=== PATIENT | female | born 1960 | race Caucasian/White ===

== ENCOUNTER 2025-04-21 12:58 | Outpatient (AMB) | payer MEDICARE, OTHER, SELFPAY ==
--- NOTE | 2025-04-21 13:29 | MHC.OFFVIS ---
Intake Visit Reasons: 3 Months Allergies doxycycline Allergy (Unknown, Verified 04/21/25 13:38) Unknown Medication List - Last Reconciled 04/21/25 by Baylee Escobar CNP alendronate 70 mg PO QWEEK atenolol 25 mg PO DAILY atorvastatin 80 mg PO DAILY brivaracetam (Briviact) 100 mg PO BID 90 days digoxin 125 mcg PO DAILY donepezil 5 mg PO DAILY furosemide 40 mg PO DAILY lamotrigine 150 mg PO BID levothyroxine 88 mcg PO DAILY sertraline 50 mg PO DAILY topiramate 200 mg PO BID ustekinumab (Stelara) mg subcut HPI Comments Details: She was doing okay. No seizures. She tried primidone, but had side effect of drowsiness with it and stopped medication. Tremors were mild and there was no functional impairment. She noticed tremor more when she was doing something like cutting food or brushing her teeth. No difficulty eating, drinking, or swallowing. Her medications were managed by her (Antonino). He had a pill splitter, but he was having a hard time splitting lamotrigine in half and she was wondering if this could be changed so medication did not need to be cut. Memory was about the same, forgetful at times. Mood was so-so. She said a doctor from [place] noted slight head tremor after stent placed a few years and told to tell her neurologist, but did not at the time as memory was getting worse which was focus of appointment. Tremor was intermittent and no functional impairment. Her (Antonino) noticed some tremor in hands. Thought she may have had seizure in mid-11/2024 as she thought?she could smell cigarette smoke and did not feel good after. The next day she could smell old lady perfume, was confused, head felt pricky, hands numb, and was tired after. Unsure how long either episode lasted. No missed medication doses.? has been managing her medications. Lamotrigine dose was increased. Had pneumonia earlier in 11/2024, treated with antibiotics. Appetite is not so good. Sometimes does not remember if she ate. Has a hard time making choices. Shopping is difficult because of all the choices. Long-term memory is starting to not be so good anymore. Mood is better with sertraline and not crying anymore.? She may have had a couple seizures at the end of 09/2024 as she ran out of [employer] and did not have medication for about 2.5 days. She was home alone, sitting with her dogs, when she had a feeling came over her like someone flipped a switch. This feeling happened a few times and then she had feeling like she had too much to drink. She did not pass out. No tongue bite or incontinence. Prior to this, she had not had recurrence of seizures in over 15 years. Memory was about the same. Short-term memory is not so good, forgetful and needs to write things down. She says she needs things to be simple and struggles if given multiple choices or options. Things take her longer to do now, like showering and getting ready. If she has somewhere to go, she lays her clothes out the night before. She still cooks and does some pattern duplicator, like laundry. Her recently started organizing her medications. She does not manage the finances and he is now on her checking account. She says he is in denial about her condition. She says he will not be able to care for her in the future and is planning to eventually go into nursing facility. Mood fluctuates, mad at times, but less so now, and finds herself crying at times and anxious. She has been noted to have some memory problems that started around 2018 with some forgetfulness and repeating herself. She got around 2018 or 2019 and doesn't remember her marriage or the day and date. She was seeing a neurologist in [place], [place] and had neuropsych testing on 12/23/22 which showed global cognitive impairment, particularly in executive function. She has not worked in about 24 years. Daughter is in [place] and sees her 2/ month and talks frequently. feels her memory is impaired. She has temporal lobe or partial complex seizures. In 2019 she had a mild heart attack and had a stent. She has a history of hypothyroidism. She tried and failed Depakote, Dilantin, Keppra, and others with side effects in [place]. FOR[facility]LY [facility], [facility] Medical History (Updated 04/21/25 @ 13:36 by Baylee Escobar CNP) Benign essential tremor Alzheimer dementia Epilepsy Review of Systems Const Denies chills, Denies daytime sleepiness, Reports difficulty sleeping, Denies fatigue, Denies fever(s), Denies frequent falls, Denies headache(s), Denies increased appetite, Denies poor appetite, Denies snoring, Denies weakness, Denies weight gain and Denies weight loss Eyes Denies loss of vision ENT Denies vertigo, Denies dizziness, Denies headache(s) and Denies neck pain Card Denies chest pain at rest, Denies chest pain with activity, Denies syncope, Denies leg edema, Denies palpitations, Denies dyspnea and Denies dyspnea on exertion Resp Denies cough, Denies dyspnea, Denies dyspnea on exertion and Denies snoring GI Denies abdominal pain, Denies constipation, Denies heartburn, Denies diarrhea and Denies nausea Denies urinary frequency, Denies urinary incontinence and Denies urinary urgency Musc Denies abnormal gait, Denies back pain, Reports myalgias, Reports arthralgias, Denies neck pain, Denies numbness and Denies tingling Neuro Denies abnormal gait, Denies vertigo, Denies dizziness, Denies syncope, Denies frequent falls, Denies headache(s), Denies lack of coordination, Denies loss of vision, Reports memory loss, Denies numbness, Denies Other visual disturbances, Denies restless legs, Reports seizure-like activity, Denies tingling, Denies paresthesias, Reports tremor(s) and Denies weakness Psych Reports anxiety, Reports depression, Denies auditory hallucinations, Reports memory loss and Denies visual hallucinations Endo Denies fatigue and Denies palpitations Physical Exam Const Other: General Appearance:? normal, in no acute distress. Heart:? S1, S2 normal, no murmurs. Lungs:? clear anteriorly and posteriorly. Musculoskeletal:? normal. Extremities:? no edema. Psych:? alert, oriented, cognitive function intact, cooperative with exam. Neuro Other: Abnormal Neurological Findings:?MMSE 22/30. Mild head and bilateral hand tremor on sustained posture and on FTN.?Tearful at times. Mental Status: alert, as below Cranial Nerves: Pupils are equal, round, and reactive to light. External ocular muscles are intact. Visual perry are full, no ptosis. Face is symmetrical, no facial weakness or droop. Facial sensations are normal. Tongue protrudes in midline. Palate elevates symmetrically. Shoulder shrugging is normal Motor Examination: Normal muscle tone, bulk and strength. No atrophy or fasciculations. No drift of the extended upper extremities. DTR 2+. Plantars are flexor. Sensory Exam: Normal light touch, temperature, pinprick, vibration, and joint-position sensations. Rhomberg sign is absent. Coordination: No ataxia. No titubation. Gait Exam: Within normal limits. Cerebellar Signs: [id number] with tremor. Extrapyramidal System: Tremor as above. No rigidity with normal facial expressions. No bradykinesia. No bradyphrenia. Normal arm swing and posture. No propulsion or retropulsion. Speech: Normal. MMSE Level of Consciousness: Alert. Orientation: Knows correct year season. Does not know month, date, and day. Knows correct city of residence, but does not know the cities around here from [place] Registration: Able to register 3 objects. Attention: Unable to do serial 7's. Recall: Able to recall 0 out of 3 objects. Language: Normal spontaneous speech, fluency, repetition, naming, comprehension, reading, and writing. Total Score: 22/30. Results Reviewed Results Reviewed: 01/10/2025 Topiramate and lamotrigine levels WNL 06/09/24 EEG- 7-7.5 Hz generalized slowing and bilateral fronto temporal bursts of sharp transients L>R with some paroxysmal discharges , suspicious for Sz. MRI negative. Assessment & Plan Assessment & Plan (1) Epilepsy: Code(s): G40.909 - Epilepsy, unspecified, not intractable, without status epilepticus Category: Medical Qualifiers: Epilepsy type: unspecified Intractability: not intractable Status epilepticus: without status epilepticus Qualified Code(s): G40.909 - Epilepsy, unspecified, not intractable, without status epilepticus Plan: Continue topiramate 200mg 1 tablet twice a day Change lamotrigine 100mg 1 tablet three times a day Continue Briviact 100mg 1 tablet twice a day (2) Alzheimer dementia: Code(s): G30.9 - Alzheimer's disease, unspecified; F02.80 - Dementia in other diseases classified elsewhere, unspecified severity, without behavioral disturbance, psychotic disturbance, mood disturbance, and anxiety Category: Medical Qualifiers: Alzheimer's disease onset: unspecified onset Dementia behavioral or psychological symptom: with mood disturbance Dementia severity: unspecified severity Qualified Code(s): G30.9 - Alzheimer's disease, unspecified; F02.83 - Dementia in other diseases classified elsewhere, unspecified severity, with mood disturbance Plan: Continue sertraline 50mg 1 tablet daily Continue donepezil 5mg 1 tablet at bedtime. (3) Benign essential tremor: Code(s): G25.0 - Essential tremor Category: Medical Plan: She tried primidone, but had side effects with medication and medication was stopped. Tremor was minimal and there was no functional impairment. No medication was needed at this time. Plan Meds tried: primidone Medications: New donepezil 5 mg PO DAILY 90 tabs 1RF 90 days topiramate 200 mg PO BID 180 tabs 1RF 90 days lamotrigine 100 mg PO TID 270 tabs 1RF 90 days brivaracetam 100 mg PO BID 180 tabs 1RF 90 days sertraline 50 mg PO DAILY 90 tabs 1RF 90 days Discontinued brivaracetam (Briviact) Discontinued Reason: Order 100 mg PO BID 90 days 180 tabs 1RF Coding Level of Care Code Est Pt Level 4 (19097) Diagnoses Nonintractable epilepsy without status epilepticus, unspecified epilepsy type G40.909 Epilepsy type: unspecified Intractability: not intractable Status epilepticus: without status epilepticus Alzheimer's dementia with mood disturbance, unspecified dementia severity, unspecified timing of dementia onset G30.9; F02.83 Alzheimer's disease onset: unspecified onset Dementia behavioral or psychological symptom: with mood disturbance Dementia severity: unspecified severity Benign essential tremor G25.0
== END 2025-04-21 14:01 | disposition home or self-care (01) ==
LOC: HO.HSM 12:59
PROVIDERS: PCP Internal Medicine; Referring Provider Internal Medicine; Visit Provider Registered Nurse
DX: G40.909 Epilepsy, unspecified, not intractable, without status epilepticus (principal); G30.9 Alzheimer's disease, unspecified; F02.83 Dementia in other diseases classified elsewhere, unspecified severity, with mood disturbance; G25.0 Essential tremor
CPT/HCPCS: 99214

== ENCOUNTER → 2025-04-21 12:58 | Outpatient (BNVA) | payer MEDICARE, OTHER, SELFPAY | PROVIDERS: PCP Internal Medicine; Referring Provider Internal Medicine; Visit Provider Registered Nurse | DX: G25.0 Essential tremor (principal); G40.909 Epilepsy, unspecified, not intractable, without status epilepticus; G30.9 Alzheimer's disease, unspecified; F02.83 Dementia in other diseases classified elsewhere, unspecified severity, with mood disturbance | CPT/HCPCS: 99212 ==